=== PATIENT | female | born 2005 | race Caucasian/White ===

== ENCOUNTER 2025-08-07 16:06 | Emergency (ER) | payer OTHER, SELFPAY ==
[2025-08-07 16:10] VITALS: BP 107/73
[2025-08-07 17:32] VITALS: BMI 19.8
[2025-08-07 17:33] VITALS: BP 106/64
[2025-08-07 18:16] LABS: Hematocrit 35.1 % (37.0-47.0); Hemoglobin 12.2 g/dL (12.0-16.0); Mean Corp Hgb Conc. 34.8 g/dL (33.0-37.0); Mean Corpuscular Volume 90.9 fL (81.0-99.0); Nucleated Red Blood Cells % 0 %; Platelet Count 221 10^3/uL (130-400); Red Cell Dist. Width 11.7 % (11.5-14.5)
[2025-08-07 18:24] LABS: HCG, Serum Qualitative Screen Negative
[2025-08-07 18:31] LABS: ALT (SGPT) 14 U/L (0-35); AST (SGOT) 20 U/L (14-36); Albumin 4.5 g/dl (3.5-5.0); Alkaline Phosphatase 55 U/L (38-126); Blood Urea Nitrogen 12 mg/dl (7-17); Calcium 9.7 mg/dl (8.4-10.2); Carbon Dioxide 29 mmol/L (22-30); Chloride 103 mmol/L (98-107); Estimated Creatinine Clearance > 125 ml/min; Glucose 89 mg/dl (70-99); Lipase 113 U/L (23-300); Magnesium 2.0 mg/dl (1.6-2.3); Potassium 3.9 mmol/L (3.5-5.1); Sodium 137 mmol/L (135-145); Total Protein 7.2 g/dl (6.3-8.2); eGFR > 60.00
[2025-08-07 18:40] LABS: Troponin I < 0.012 ng/ml
--- NOTE | 2025-08-07 20:18 | ED.GENMED ---
History of Present Illness
General
Chief Complaint: Dizziness
Source: patient
Exam Limitations: none
Time Seen by Provider: 08/07/25 17:13
Nursing documentation reviewed up to this point in time: agreed with
History of Present Illness
History of Present Illness:
see MDM
Past History
Past History
ED Past Medical History: None
ED Past Surgical History: None
Social History
Tobacco: Non-smoker
Alcohol: None
Drug: None
Personal: Single
Living: with family
Review of Systems
Review of Systems
Allergies reviewed?: Yes
All Other Systems: Not applicable
Phy Exam
Physical Exam
Physical Exam:
GENERAL: Alert , in no apparent distress
EYE: pupils equal and reactive
NECK: Supple
ENT: o/p clr, mmm.
CARDIAC: Regular rate and rhythm .
LUNGS: Clear breath sounds bilaterally, no acute respiratory distress, no wheezes/rales/rhonchi
ABDOMEN: Soft, without focal tenderness, no r/g, no cvat, normal bowel sounds
NEUROLOGICAL: Alert and oriented, no focal neuro deficits
SKIN: Warm and dry, skin intact.
MUSCULOSKELETAL: No edema, well perfused. neg bobby's sign
PSYCH: Normal and appropriate interaction.
Course
Orders/Labs/Results
Orders:
Orders
08/07/25 16:37
EKG [Electrocardiogram (*1)] Urgent
Reason for Study: Vertigo / Dizzy
EKG- Treatment ONCE
08/07/25 17:52
CT Chest PE Study Urgent
Comment:
Reason For Exam: tachy, near syncope, cp
Test Result ONCE
08/07/25 18:04
Complete Blood Count/With Diff Urgent
Comprehensive Metabolic Panel Urgent
HCG, Serum Qualitative Screen Urgent
Lipase Urgent
Magnesium Urgent
TSH Reflex To Free T4 Urgent
Troponin I Urgent
Abnormal Lab Results
08/07/25
18:04
RBC 3.86 L 10^6/uL
(4.20-5.40)
Hct 35.1 L %
(37.0-47.0)
MCH 31.6 H pg
(27.0-31.0)
08/07/25 18:04
08/07/25 18:04
Vital Signs
Initial and Last Documented VS:
Initial Vital Signs
Temp Pulse Resp BP Pulse Ox
37.0 C 83 18 107/73 100
08/07/25 16:10 08/07/25 16:10 08/07/25 16:10 08/07/25 16:10 08/07/25 16:10
Last Documented Vital Signs
Temp Pulse Resp BP Pulse Ox
37.0 C 72 15 106/64 100
08/07/25 16:10 08/07/25 18:45 08/07/25 18:45 08/07/25 17:33 08/07/25 20:18
MDM/Problems Addressed
Differential Diagnosis Includes:
see MDM
MDM/Problems Addressed:
Note:
CHIEF COMPLAINT(S)
Feeling faint while driving with chest and back pain.
HISTORY OF PRESENT ILLNESS
The patient is a 20-year-old female who presented with episodes of lightheadedness and chest pain. The symptoms started this morning while she was driving, when she began feeling faint and had shooting pains in the left side of her chest and back.
These symptoms occurred previously two and a half weeks ago while driving, where she experienced a very high heart rate of 152 beats per minute, cold sensation, shakiness, and nearly lost vision, causing her to wallpaper remover steam. She did not fully pass out
but felt faint. The episode lasted about an hour and a half before she returned to baseline. This mornings episode was similar but less severe. She tried driving again two hours later and experienced sharp chest pains but no high heart rate.
Since the first incident, she has experienced intermittent shooting chest pains, separate from driving, with no specific triggers related to activity, position, or breathing. The pain is described as sharp and episodic, with no consistent pattern.
She has sought care at urgent care and [facility], where they conducted an electrocardiogram (EKG) and blood tests, but the results were not specified.
She has no history of blood clots, is not on control, and has regular menstrual cycles. She mentions being under stress at school.
ADDITIONAL HISTORY OBTAINED FROM SOURCES OTHER THAN THE PATIENT
The patients mother was present during the conversation, but no additional history was provided by her.
FAMILY HISTORY
No significant family history of heart disease or blood clots was noted.
SOCIAL HISTORY
The patient is a student at [employer] and mentions stress related to schoolwork. She denies any drug use.
REVIEW OF SYSTEMS
- Cardiovascular: Episodic chest pain, high heart rate episodes, nearly fainted on two occasions while driving.
- Neurological: Episodes of almost passing out, vision loss during an episode.
- Musculoskeletal: Shooting pains through the back.
PHYSICAL EXAM
- Nursing notes reviewed and vital signs reviewed.
- Cardiovascular: No objective findings from conversation.
- Pulmonary: Oxygen levels are good.
- Neurological: No objective findings from conversation.
- Musculoskeletal: No objective findings from conversation.
PROBLEM LIST
Acute:
- Episodes of feeling faint while driving.
- Intermittent chest and back pain.
PLAN
- The patient will undergo a computed tomography (CT) scan with contrast to assess for potential pulmonary embolism and to evaluate cardiac and pulmonary structures comprehensively.
- Blood tests will be conducted to check for thyroid function and possible dehydration.
- If no immediate issues are found, referral to a [facility] for further evaluation, including an echocardiogram, will be considered.
- Monitor the patients status for a few hours to ensure stability and safety before discharge.
DIFFERENTIAL DIAGNOSIS
The Differential Diagnosis includes, in no particular order and is not limited to:
1. Pulmonary embolism
2. Cardiac arrhythmia
3. Anxiety or panic attack
4. Hyperthyroidism
5. Orthostatic hypotension
6. Atypical chest pain
7. Dehydration
8. Viral syndrome (post-infectious symptoms)
9. Musculoskeletal pain
10. Panic disorder with somatic presentation
20 y/o F
no pmh
college student under stress
cp/lightheaded/near syncope/elev hr while driving 2 weeks ago
not fully passed out
resolved
intermittent cp since but not exertional, quick
today again whlie driving near [place], cp
08/07/25 - 21:59
The patients recent emergency department visit showed normal results across several tests, including a normal CAT scan, absence of blood clots, and normal thyroid function. Despite the normal test results, the patient experiences episodes where her
heart rate spikes to the 150s during physical activity, potentially causing inadequate perfusion and near-syncope. Differential diagnosis includes sinus tachycardia versus paroxysmal supraventricular tachycardia (SVT). A 48-hour Holter monitor and
possibly an echocardiogram are recommended for further evaluation, neither of which necessitate immediate hospital admission. The patient will follow up with a [facility] for evaluation and potential monitoring, with the noted referral to
qasim, (i did speak with him via TT and he did not feel ekg was brugada pattern, ok fo routpatinet f/u with pcp for monitor). There is a discussion regarding postural orthostatic tachycardia syndrome (POTS) and the linked importance of hydration
and compression stockings, although this condition is not considered highly concerning at the moment. Advised to avoid drugs, excess caffeine, and alcohol. Due to increased heart rate concerns, moderation in physical exercise is recommended until
further assessment. Stress management is also emphasized.
*Pulse Oximetry
SaO2: 100
Oxygen Mode of Delivery: Room air
Patient hypoxic: no (100)
*Critical Care Note
Total Time (30-74mins, 75-104mins- exclusive of procedures): Not Applicable
ED Attending Note
-
Portions of this chart may have been created with voice recognition software.� Occasional wrong word or��sound alike� substitutions may have occurred due to the inherent limitations of voice recognition software.
Discharge Plan
Departure
Patient Disposition: Home (Routine Discharge)
Date of Disposition: 08/07/25
Time of Disposition: 21:48
Patient with high blood pressure during this ER visit?: No
Condition: Fair
Covid-19: Not Applicable
Discharge Problem:
Near syncope, Chest pain
Instructions: Near Fainting (DC)
Prescriptions:
No Action
prednisone 50 mg tablet
50 mg PO DAILY Qty: 5 0RF
Referrals:
Jasper Condon MD [Active, Cardiology] - Follow up in 5-7 days
Chio Wright MD [Family Provider, Internal Medicine] - Follow up in 2-3 days
Stand Alone Forms: Back to School
Activity Restrictions/Additional Instructions:
Not sure the cause of your symptoms but it seems as if you should follow-up with a [facility], you may need to wear a monitor for 24 to 48 hours to see what is happening with your heart rate.
Make sure to stay hydrated. Your CAT scan was reassuring and showed no blood clots, he had no signs of a heart attack. Your electrolytes were good and your thyroid test was normal.
This could be an abnormal rhythm that is happening with your heart causing you to feel this way or it could just be spiking in rate causing you to feel lightheaded or drop your blood pressure.
If you feel like this please lay down
Avoid exertional activity for now like running/serious exertional exercise etc.
Interventions
Interventions:
*Risk Screen - Suicide Last Done: 08/07/25 16:10
*ED- Fall Risk Assessment Last Done: 08/07/25 17:32
*ED COVID-19 Vaccine History Last Done: 08/07/25 16:10
*ED Influenza Vaccine History Last Done: 08/07/25 16:10
*Nursing Disposition Last Done: 08/07/25 22:03
ED- Neurological Assessment Last Done: 08/07/25 17:32
ED Swallowing Screen Last Done: 08/07/25 17:32
Discharge Date and Time
Discharge Date/Time: 08/07/25 22:11
Print Language: ICELANDIC
== END 2025-08-07 22:11 | disposition home or self-care (01) ==
LOC: EMR 16:06
PROVIDERS: Physician Assistant; EMERGENCY PHYSICIAN Emergency Medicine; FAMILY PHYSICIAN Internal Medicine
DX: R55 Syncope and collapse (principal); R07.89 Other chest pain
CPT/HCPCS: 99284; 71275; 80053; 83690; 83735; 84443; 84484; 84703; 85025; 93005; Q9967

== ENCOUNTER → 2025-08-11 08:28 | Outpatient (REF) | payer OTHER, SELFPAY | LOC: RCS 08:28 | PROVIDERS: ATTENDING PHYSICIAN Nurse Practitioner Family | DX: R07.89 Other chest pain (principal); R00.2 Palpitations | CPT/HCPCS: 93225; 93226 ==

== ENCOUNTER → 2025-08-14 15:05 | Outpatient (REF) | payer OTHER, SELFPAY | LOC: RCS 15:05 | PROVIDERS: ATTENDING PHYSICIAN Internal Medicine Cardiovascular Disease; FAMILY PHYSICIAN Internal Medicine | DX: R55 Syncope and collapse (principal); R00.2 Palpitations | CPT/HCPCS: 93306 ==